=== PATIENT | female | born 1985 | race Caucasian/White ===

== ENCOUNTER 2018-10-27 12:43 | Emergency (ER) | payer OTHER, SELFPAY ==
[2018-10-27 12:51] VITALS: BP 127/89; PULSE 77; RESP 14; TEMP 36.7; O2SAT 97
[2018-10-27 13:41] LABS: Amorphous Sediment Urine 1+; Bacteria Urine Few (2-10); Culture Indicated Urine Specimen Cultured; Mucus Urine 1+ (Negative); RBC Urine 1-5/HPF (0-5/HPF); Squamous Epithelial Cell Urine 5-10 /HPF (0-5/HPF); WBC Urine 5-10/HPF (0-5/HPF)
[2018-10-27 14:57] VITALS: BP 128/79; PULSE 70; RESP 18; O2SAT 97
[2018-10-27 15:41] LABS: Add Manual Diff / Slide Review NO; Basophils Absolute Auto 100 /uL (0-100); Basophils Percent Auto 0.4 % (0-2); Eosinophils Absolute Auto 100 /uL (0-450); Eosinophils Percent Auto 1.1 % (2-4); Hematocrit 39.1 % (36-46); Hemoglobin 12.7 g/dL (12.0-16.0); Lymphocytes Absolute Auto 1800 /uL (1100-4500); Lymphocytes Percent Auto 13.6 % (25-40); Mean Corpuscular HGB Conc 32.4 % (30-36); Mean Corpuscular Hemoglobin 26.4 PG (26-34); Mean Corpuscular Volume 81.4 fL (80-100); Monocytes Absolute Auto 400 /uL (0-900); Monocytes Percent Auto 2.7 % (3-14); Neutrophils Absolute Auto 11000 /uL (1500-7000); Neutrophils Percent Auto 82.2 % (50-75); Platelet Count 312 X10^3/uL (150-400); White Blood Cell Count 13.4 X10^3/uL (4.5-11.0)
[2018-10-27 15:51] LABS: Alanine Aminotransferase 25 IU/L (9-52); Albumin 4.4 g/dL (3.5-5.0); Albumin Globulin Ratio 1.3 (1.0-2.8); Alkaline Phosphatase 97 U/L (38-126); Aspartate Aminotransferase 22 IU/L (14-36); BUN Creatinine Ratio 16.3 (6-22); Bilirubin Total 0.3 mg/dL (0.2-1.3); Blood Urea Nitrogen 13 mg/dL (7-17); Calcium 9.6 mg/dL (8.4-10.2); Carbon Dioxide 26 mmol/L (22-32); Chloride 102 mmol/L (98-107); Estimated Glomerular Filt Rate > 60.0 mL/min (>60); Globulin 3.5 g/dL (1.7-4.1); Glucose 102 mg/dL (70-100); HEMOLYSIS < 15 (0-50); Potassium 3.8 mmol/L (3.4-5.1); Sodium 139 mmol/L (137-145); Total Protein 7.9 g/dL (6.3-8.2)
--- NOTE | 2018-10-27 16:15 | DI.US.S_ITS ---
PROCEDURE: US PELVIC COMPLETE INDICATIONS: RLQ PAIN TECHNIQUE: Real-time scanning was performed of the pelvic organs, with image documentation. Additional endovaginal scanning was necessary due to incomplete visualization of the adnexal and endometrial structures by transabdominal scanning. COMPARISON: None. FINDINGS: Transabdominal scanning: Limited scanning through the kidneys shows no hydronephrosis. No pathologic free abdominal or pelvic fluid. Endovaginal scanning: Uterus: Uterus is normal in size at anteverted measuring 7.6 x 3.3 x 3.8 cm. The endometrium measures 6.3 mm in combined thickness. Ovaries: There is a simple appearing left ovarian cyst measuring 1.9 cm most likely a dominant follicle. Ovaries are otherwise normal. Right ovary measures 2.9 x 1.9 x 1.6 cm. Left ovary measures 3.2 x 2.1 x 1.0 cm. The appendix is not visualized. IMPRESSION: 1. No ultrasound findings tubes and right lower quadrant pain. Appendix is not visualized. Cannot rule out acute appendicitis. 2. Normal uterus and ovaries. Dictated by: Caprice Chirinos M.D. on 10/27/2018 at 16:34 Approved by: Caprice Chirinos M.D. on 10/27/2018 at 16:37
[2018-10-27] MEDS: ONDANSETRON 4 MG/2 ML INJ IV (16:18)
[2018-10-27] MEDS: KETOROLAC 60 MG/2 ML VIAL 30 MG IV (16:18)
[2018-10-27 16:59] VITALS: BP 121/62; PULSE 72; RESP 17; O2SAT 99
[2018-10-27 18:20] VITALS: BP 110/57; RESP 18; TEMP 36.7; O2SAT 98
--- NOTE | 2018-10-27 18:51 | ED.ABDPAIN ---
HPI - Abdominal Pain <CESAR Au - Last Filed: 10/27/18 18:56> General Chief Complaint: Abdominal Pain Stated Complaint: bladder pressure Time Seen by Provider: 10/27/18 15:12 Source: patient Mode of arrival: ambulatory Limitations: no limitations History of Present Illness HPI narrative: The patient is a 33-year-old female nonsmoker who presents with dribbling urine, sensation of incomplete bladder emptying, urgency and frequency. She complains of diffuse chills. She denies any overt fevers. She denies any vomiting or diarrhea. She states she almost fell nauseous once. She denies any chest pain, shortness of breath. She denies any vaginal discharge. she denies any concern for sexually transmitted infections. She states that her pressure is suprapubic, radiating to the right. Related Data Home Medications Medication Instructions Recorded Confirmed Trinessa 1 tab PO DAILY 10/27/18 10/27/18 albuterol sulfate [ProAir HFA] 1 puff INHALATION PRN PRN 10/27/18 10/27/18 cetirizine [Zyrtec] 10 mg PO DAILY 10/27/18 10/27/18 fluticasone propionate [Flonase 2 spray INTRANASAL DAILY 10/27/18 10/27/18 Allergy Relief] ibuprofen 800 mg PO PRN PRN 10/27/18 10/27/18 naproxen 1 tab PO PRN PRN 10/27/18 10/27/18 Previous Rx's Medication Instructions Recorded sulfamethoxazole-trimethoprim 1 tab PO BID #14 tab 10/27/18 [Bactrim DS] Allergies Allergy/AdvReac Type Severity Reaction Status Date / Time amoxicillin Allergy Intermediate Difficulty Verified 10/27/18 16:18 Breathing clavulanic acid Allergy Intermediate Difficulty Verified 10/27/18 16:18 [From Augmentin] Breathing diphenhydramine Allergy Unknown Verified 10/27/18 16:18 [From BENADRYL] Review of Systems <CESAR Au - Last Filed: 10/27/18 18:56> Review of Systems GENERAL: Denies chills, fatigue, malaise, fever, sweats. HEENT: Denies sinus pain, ear pain, sore throat, difficulty swallowing, dizziness. RESPIRATORY: Denies dyspnea, cough, wheezing, hemoptysis, sputum. CARDIOVASCULAR: Denies chest pain, palpitations, orthopnea, edema, GASTROINTESTINAL: See HPI : See HPI MUSCULOSKELETAL: denies weakness, joint pain, or bony pain SKIN: Denies rash, skin lesions, or other NEUROLOGIC: Denies weakness, headache, numbness, change in speech, confusion, seizures, incoordination. PSYCHIATRIC: No concerning psychosocial issues. 12 point review of systems is negative except for those stated above PFSH <CESAR Au - Last Filed: 10/27/18 18:56> Social History Smoking Status: Never smoker Social History Smoking Status: Never smoker Exam <CESAR Au - Last Filed: 10/27/18 18:56> Narrative Exam Narrative: GENERAL: This is a well-nourished, well-developed patient, in no acute distress HEAD: Atraumatic. Normocephalic. No temporal or scalp tenderness. EYES: Pupils equal round and reactive. Extraocular motions intact. No scleral icterus. No injection or drainage. ENT: Nose without bleeding, purulent drainage or septal hematoma. Throat without erythema, tonsillar hypertrophy or exudate. Uvula midline. Airway patent. NECK: Trachea midline. No JVD or lymphadenopathy. Supple, nontender, no meningeal signs. CARDIOVASCULAR: Regular rate and rhythm without murmurs, gallops, or rubs. RESPIRATORY: Clear to auscultation. Breath sounds equal bilaterally. No wheezes, rales, or rhonchi. No cough. No increased respiratory effort. No accessory muscle use. GASTROINTESTINAL: Abdomen soft, nondistended. No hepato-splenomegaly, or palpable masses. No guarding. Right-sided diffuse tenderness to palpation. No peritoneal signs. Negative obturator sign. EXTREMITIES: No clubbing, cyanosis, or edema. No joint tenderness, effusion, or edema noted. BACK: Nontender without deformity or crepitance. No flank tenderness. NEURO: AOx3. SKIN: No rash or erythema. Initial Vital Signs Initial Vital Signs: Vital Signs Temperature 98.0 F 10/27/18 12:51 Pulse Rate 77 10/27/18 12:51 Respiratory Rate 14 10/27/18 12:51 Blood Pressure 127/89 10/27/18 12:51 Pulse Oximetry 97 10/27/18 12:51 <Carly Resendez DO - Last Filed: 10/27/18 19:24> Initial Vital Signs Initial Vital Signs: Vital Signs Temperature 98.0 F 10/27/18 12:51 Pulse Rate 77 10/27/18 12:51 Respiratory Rate 14 10/27/18 12:51 Blood Pressure 127/89 10/27/18 12:51 Pulse Oximetry 97 10/27/18 12:51 Course <MONTSERRAT Au-BC - Last Filed: 10/27/18 18:56> Orders Ordered: ED Orders 10/27/18 13:15 Urine Culture Stat Urine Microscopic Stat 10/27/18 15:30 Complete Blood Count AUTO DIFF Stat Comprehensive Metabolic Panel Stat 10/27/18 16:15 US pelvic complete Stat Discontinued Medications Ketorolac Tromethamine (Toradol) 30 mg IV NOW ONE Stop: 10/27/18 15:30 Last Admin: 10/27/18 16:18 Dose: 30 mg Ondansetron HCl (Zofran) 4 mg IV NOW ONE Stop: 10/27/18 15:30 Last Admin: 10/27/18 16:18 Dose: 4 mg Vital Signs - 8 hr 10/27/18 12:51 10/27/18 14:57 10/27/18 16:59 Temperature 98.0 F Pulse Rate 77 70 72 Respiratory Rate 14 18 17 Blood Pressure 127/89 Blood Pressure [Left Arm] 128/79 121/62 Pulse Oximetry 97 97 99 10/27/18 18:20 Temperature 98.1 F Pulse Rate Respiratory Rate 18 Blood Pressure Blood Pressure [Left Arm] 110/57 L Pulse Oximetry 98 <Carly Resendez DO - Last Filed: 10/27/18 19:24> Orders Ordered: ED Orders 10/27/18 13:15 Urine Culture Stat Urine Microscopic Stat 10/27/18 15:30 Complete Blood Count AUTO DIFF Stat Comprehensive Metabolic Panel Stat 10/27/18 16:15 US pelvic complete Stat Discontinued Medications Ketorolac Tromethamine (Toradol) 30 mg IV NOW ONE Stop: 10/27/18 15:30 Last Admin: 10/27/18 16:18 Dose: 30 mg Ondansetron HCl (Zofran) 4 mg IV NOW ONE Stop: 10/27/18 15:30 Last Admin: 10/27/18 16:18 Dose: 4 mg Vital Signs - 8 hr 10/27/18 12:51 10/27/18 14:57 10/27/18 16:59 Temperature 98.0 F Pulse Rate 77 70 72 Respiratory Rate 14 18 17 Blood Pressure 127/89 Blood Pressure [Left Arm] 128/79 121/62 Pulse Oximetry 97 97 99 10/27/18 18:20 Temperature 98.1 F Pulse Rate Respiratory Rate 18 Blood Pressure Blood Pressure [Left Arm] 110/57 L Pulse Oximetry 98 MDM - Abdominal Pain <MARY ELLEN AuP-BC - Last Filed: 10/27/18 18:56> Lab Data Result diagrams: 10/27/18 15:30 10/27/18 15:30 Lab Results 10/27/18 10/27/18 10/27/18 Range/Units 13:15 15:30 15:30 WBC 13.4 H (4.5-11.0) X10^3/uL RBC 4.80 (4.0-5.2) X10^6/uL Hgb 12.7 (12.0-16.0) g/dL Hct 39.1 (36-46) % MCV 81.4 (80-100) fL MCH 26.4 (26-34) PG MCHC 32.4 (30-36) % RDW 14.0 (11.6-14.8) % Plt Count 312 (150-400) X10^3/uL Neut % (Auto) 82.2 H (50-75) % Lymph % (Auto) 13.6 L (25-40) % [place] % (Auto) 2.7 L (3-14) % Eos % (Auto) 1.1 L (2-4) % Baso % (Auto) 0.4 (0-2) % Neut # (Auto) 57518 H (2671-4242) /uL Lymph # (Auto) 1800 (9657-3239) /uL [place] # (Auto) 400 (0-900) /uL Eos # (Auto) 100 (0-450) /uL Baso # (Auto) 100 (0-100) /uL Sodium 139 (137-145) mmol/L Potassium 3.8 (3.4-5.1) mmol/L Chloride 102 (98-107) mmol/L Carbon Dioxide 26 (22-32) mmol/L BUN 13 (7-17) mg/dL Creatinine 0.80 (0.52-1.04) mg/dL Estimated GFR > 60.0 (>60) mL/min BUN/Creatinine Ratio 16.3 (6-22) Glucose 102 H (70-100) mg/dL Calcium 9.6 (8.4-10.2) mg/dL Total Bilirubin 0.3 (0.2-1.3) mg/dL AST 22 (14-36) IU/L ALT 25 (9-52) IU/L Alkaline Phosphatase 97 (38-126) U/L Total Protein 7.9 (6.3-8.2) g/dL Albumin 4.4 (3.5-5.0) g/dL Globulin 3.5 (1.7-4.1) g/dL Albumin/Globulin Ratio 1.3 (1.0-2.8) Urine RBC 1-5/hpf (0-5/HPF) Urine WBC 5-10/hpf H (0-5/HPF) Ur Squamous Epith Cells 5-10 /hpf H (0-5/HPF) Amorphous Sediment 1+ Urine Bacteria Few (2-10) H (None) Urine Mucus 1+ H (Negative) Ur Culture Indicated? Specimen cultured Point of care testing: Point of Care Testing Test Results Negative Urine Dip Bedside Urine Glucose Negative Bedside Urine Bilirubin - Negative Bedside Urine Ketone - Negative Urine Specific [place] 1.030 Bedside Urine Occult Blood +++ Bedside Urine pH 5.5 Bedside Urine Protein +/- 15 Bedside Urine Urobilinogen +/- 1mg Bedside Urine Nitrite - Negative Bedside Urine Leukocytes + 70 Esterase Imaging Data Pelvic ultrasound: Radiologist's impression: Ayah Diceky 33 F 1985 [place] [id number] Ultrasound Report Signed Patient: Ayah Dickey RMR#: [id number] : 1985Acct:[id number] Age/Sex: 33 / FDate of Service: 10/27/18 Loc: ED Accession Number: [id number] Procedure: US pelvic complete Ordering Provider: Carly Hathaway [employer]-BC PROCEDURE: US PELVIC COMPLETE INDICATIONS: RLQ PAIN TECHNIQUE: Real-time scanning was performed of the pelvic organs, with image documentation. Additional endovaginal scanning was necessary due to incomplete visualization of the adnexal and endometrial structures by transabdominal scanning. COMPARISON: None. FINDINGS: Transabdominal scanning: Limited scanning through the kidneys shows no hydronephrosis. No pathologic free abdominal or pelvic fluid. Endovaginal scanning: Uterus: Uterus is normal in size at anteverted measuring 7.6 x 3.3 x 3.8 cm. The endometrium measures 6.3 mm in combined thickness. Ovaries: There is a simple appearing left ovarian cyst measuring 1.9 cm most likely a dominant follicle. Ovaries are otherwise normal. Right ovary measures 2.9 x 1.9 x 1.6 cm. Left ovary measures 3.2 x 2.1 x 1.0 cm. The appendix is not visualized. IMPRESSION: 1. No ultrasound findings tubes and right lower quadrant pain. Appendix is not visualized. Cannot rule out acute appendicitis. 2. Normal uterus and ovaries. Dictated by: Caprice Chirinos M.D. on 10/27/2018 at 16:34 Approved by: Caprice Chirinos M.D. on 10/27/2018 at 16:37 MDM Narrative Medical decision making narrative: The patient is a 33-year-old female who presents with urinary symptoms and suprapubic pressure radiating to right lower quadrant. She is afebrile. She was drinking throughout her stay in the emergency department thus tolerating p.o. intake. She does not have an acute abdominal exam. She does have bacteria, leukocyte esterase, and blood in her urine. Thus I will treat her for UTI with Bactrim. I discussed at length that the ultrasound is not fully rule out appendicitis. Discussed return precautions to the emergency department including fever with abdominal pain, inability keep down fluids etc. Encouraged follow-up with primary care provider for re-evaluation in the next few days. Patient has no questions or concerns upon discharge. <Carly Resendez, DO - Last Filed: 10/27/18 19:24> Lab Data Lab Results 10/27/18 10/27/18 10/27/18 Range/Units 13:15 15:30 15:30 WBC 13.4 H (4.5-11.0) X10^3/uL RBC 4.80 (4.0-5.2) X10^6/uL Hgb 12.7 (12.0-16.0) g/dL Hct 39.1 (36-46) % MCV 81.4 (80-100) fL MCH 26.4 (26-34) PG MCHC 32.4 (30-36) % RDW 14.0 (11.6-14.8) % Plt Count 312 (150-400) X10^3/uL Neut % (Auto) 82.2 H (50-75) % Lymph % (Auto) 13.6 L (25-40) % [place] % (Auto) 2.7 L (3-14) % Eos % (Auto) 1.1 L (2-4) % Baso % (Auto) 0.4 (0-2) % Neut # (Auto) 45947 H (8171-4083) /uL Lymph # (Auto) 1800 (8996-0373) /uL [place] # (Auto) 400 (0-900) /uL Eos # (Auto) 100 (0-450) /uL Baso # (Auto) 100 (0-100) /uL Sodium 139 (137-145) mmol/L Potassium 3.8 (3.4-5.1) mmol/L Chloride 102 (98-107) mmol/L Carbon Dioxide 26 (22-32) mmol/L BUN 13 (7-17) mg/dL Creatinine 0.80 (0.52-1.04) mg/dL Estimated GFR > 60.0 (>60) mL/min BUN/Creatinine Ratio 16.3 (6-22) Glucose 102 H (70-100) mg/dL Calcium 9.6 (8.4-10.2) mg/dL Total Bilirubin 0.3 (0.2-1.3) mg/dL AST 22 (14-36) IU/L ALT 25 (9-52) IU/L Alkaline Phosphatase 97 (38-126) U/L Total Protein 7.9 (6.3-8.2) g/dL Albumin 4.4 (3.5-5.0) g/dL Globulin 3.5 (1.7-4.1) g/dL Albumin/Globulin Ratio 1.3 (1.0-2.8) Urine RBC 1-5/hpf (0-5/HPF) Urine WBC 5-10/hpf H (0-5/HPF) Ur Squamous Epith Cells 5-10 /hpf H (0-5/HPF) Amorphous Sediment 1+ Urine Bacteria Few (2-10) H (None) Urine Mucus 1+ H (Negative) Ur Culture Indicated? Specimen cultured Point of care testing: Point of Care Testing Test Results Negative Urine Dip Bedside Urine Glucose Negative Bedside Urine Bilirubin - Negative Bedside Urine Ketone - Negative Urine Specific [place] 1.030 Bedside Urine Occult Blood +++ Bedside Urine pH 5.5 Bedside Urine Protein +/- 15 Bedside Urine Urobilinogen +/- 1mg Bedside Urine Nitrite - Negative Bedside Urine Leukocytes + 70 Esterase Discharge Plan Departure Patient Disposition: Home Clinical Impression: UTI (urinary tract infection) Qualifiers: Urinary tract infection type: site unspecified Hematuria presence: with hematuria Qualified Code(s): N39.0 - Urinary tract infection, site not specified Discharge Date/Time: 10/27/18 18:29 Interventions: ED Discharge Assessment Last Done: 10/27/18 18:26 Instructions: DI for Urinary Tract Infection (UTI) Activity Restrictions/Additional Instructions: You had bacteria, blood and leukocyte esterase in your urine. I am giving you Bactrim for urinary tract infection. The ultrasound we did today did not find anything acute, but does not fully rule out appendicitis as the appendix was not visualized. Please monitor for abdominal pain with fever, inability keep down fluids worsening of pain etc. Please follow up with primary care provider. Please come back to the emergency department for any acute concerns such as inability keep down fluids, abdominal pain with fever etc. Prescriptions: New sulfamethoxazole-trimethoprim [Bactrim DS] 800-160 mg tablet 1 tab PO BID Qty: 14 RF: 0 No Action albuterol sulfate [ProAir HFA] 90 mcg/actuation HFA aerosol inhaler 1 puff Inhalation PRN PRN (Reason: Shortness Of Breath) RF: 0 Trinessa 1 tab PO DAILY RF: 0 cetirizine [Zyrtec] 10 mg Tablet 10 mg PO DAILY RF: 0 ibuprofen 400 mg Tablet 800 mg PO PRN PRN (Reason: pain) RF: 0 fluticasone propionate [Flonase Allergy Relief] 50 mcg/actuation [place],Suspension 2 spray Intranasal DAILY RF: 0 naproxen 1 tab PO PRN PRN (Reason: pain) RF: 0 <Carly Resendez DO - Last Filed: 10/27/18 19:24> Cosign ED Attending Karleeature Attestation: I was immediately available in the department for consultation. This documentation has been reviewed and I agree with assessment and plan. Supervised by Carly Resendez, DO
--- NOTE | 2018-10-27 18:56 | ED_ITS ---
HPI - Abdominal Pain <CESAR Au - Last Filed: 10/27/18 18:56> General Chief Complaint: Abdominal Pain Stated Complaint: bladder pressure Time Seen by Provider: 10/27/18 15:12 Source: patient Mode of arrival: ambulatory Limitations: no limitations History of Present Illness HPI narrative: The patient is a 33-year-old female nonsmoker who presents with dribbling urine, sensation of incomplete bladder emptying, urgency and frequency. She complains of diffuse chills. She denies any overt fevers. She denies any vomiting or diarrhea. She states she almost fell nauseous once. She denies any chest pain, shortness of breath. She denies any vaginal discharge. she denies any concern for sexually transmitted infections. She states that her pressure is suprapubic, radiating to the right. Related Data Home Medications Medication Instructions Recorded Confirmed Trinessa 1 tab PO DAILY 10/27/18 10/27/18 albuterol sulfate [ProAir HFA] 1 puff INHALATION PRN PRN 10/27/18 10/27/18 cetirizine [Zyrtec] 10 mg PO DAILY 10/27/18 10/27/18 fluticasone propionate [Flonase 2 spray INTRANASAL DAILY 10/27/18 10/27/18 Allergy Relief] ibuprofen 800 mg PO PRN PRN 10/27/18 10/27/18 naproxen 1 tab PO PRN PRN 10/27/18 10/27/18 Previous Rx's Medication Instructions Recorded sulfamethoxazole-trimethoprim 1 tab PO BID #14 tab 10/27/18 [Bactrim DS] Allergies Allergy/AdvReac Type Severity Reaction Status Date / Time amoxicillin Allergy Intermediate Difficulty Verified 10/27/18 16:18 Breathing clavulanic acid Allergy Intermediate Difficulty Verified 10/27/18 16:18 [From Augmentin] Breathing diphenhydramine Allergy Unknown Verified 10/27/18 16:18 [From BENADRYL] Review of Systems <CESAR Au - Last Filed: 10/27/18 18:56> Review of Systems GENERAL: Denies chills, fatigue, malaise, fever, sweats. HEENT: Denies sinus pain, ear pain, sore throat, difficulty swallowing, dizziness. RESPIRATORY: Denies dyspnea, cough, wheezing, hemoptysis, sputum. CARDIOVASCULAR: Denies chest pain, palpitations, orthopnea, edema, GASTROINTESTINAL: See HPI : See HPI MUSCULOSKELETAL: denies weakness, joint pain, or bony pain SKIN: Denies rash, skin lesions, or other NEUROLOGIC: Denies weakness, headache, numbness, change in speech, confusion, seizures, incoordination. PSYCHIATRIC: No concerning psychosocial issues. 12 point review of systems is negative except for those stated above PFSH <SAMANTHA Au - Last Filed: 10/27/18 18:56> Social History Smoking Status: Never smoker Social History Smoking Status: Never smoker Exam <CESRA Au - Last Filed: 10/27/18 18:56> Narrative Exam Narrative: GENERAL: This is a well-nourished, well-developed patient, in no acute distress HEAD: Atraumatic. Normocephalic. No temporal or scalp tenderness. EYES: Pupils equal round and reactive. Extraocular motions intact. No scleral icterus. No injection or drainage. ENT: Nose without bleeding, purulent drainage or septal hematoma. Throat without erythema, tonsillar hypertrophy or exudate. Uvula midline. Airway patent. NECK: Trachea midline. No JVD or lymphadenopathy. Supple, nontender, no meningea l signs. CARDIOVASCULAR: Regular rate and rhythm without murmurs, gallops, or rubs. RESPIRATORY: Clear to auscultation. Breath sounds equal bilaterally. No wheezes, rales, or rhonchi. No cough. No increased respiratory effort. No accessory muscle use. GASTROINTESTINAL: Abdomen soft, nondistended. No hepato-splenomegaly, or palpable masses. No guarding. Right-sided diffuse tenderness to palpation. No peritoneal signs. Negative obturator sign. EXTREMITIES: No clubbing, cyanosis, or edema. No joint tenderness, effusion, or edema noted. BACK: Nontender without deformity or crepitance. No flank tenderness. NEURO: AOx3. SKIN: No rash or erythema. Initial Vital Signs Initial Vital Signs: Vital Signs Temperature 98.0 F 10/27/18 12:51 Pulse Rate 77 10/27/18 12:51 Respiratory Rate 14 10/27/18 12:51 Blood Pressure 127/89 10/27/18 12:51 Pulse Oximetry 97 10/27/18 12:51 <Carly Resendez DO - Last Filed: 10/27/18 19:24> Initial Vital Signs Initial Vital Signs: Vital Signs Temperature 98.0 F 10/27/18 12:51 Pulse Rate 77 10/27/18 12:51 Respiratory Rate 14 10/27/18 12:51 Blood Pressure 127/89 10/27/18 12:51 Pulse Oximetry 97 10/27/18 12:51 Course <MARY ELLEN AuP-BC - Last Filed: 10/27/18 18:56> Orders Ordered: ED Orders 10/27/18 13:15 Urine Culture Stat Urine Microscopic Stat 10/27/18 15:30 Complete Blood Count AUTO DIFF Stat Comprehensive Metabolic Panel Stat 10/27/18 16:15 US pelvic complete Stat Discontinued Medications Ketorolac Tromethamine (Toradol) 30 mg IV NOW ONE Stop: 10/27/18 15:30 Last Admin: 10/27/18 16:18 Dose: 30 mg Ondansetron HCl (Zofran) 4 mg IV NOW ONE Stop: 10/27/18 15:30 Last Admin: 10/27/18 16:18 Dose: 4 mg Vital Signs - 8 hr 10/27/18 12:51 10/27/18 14:57 10/27/18 16:59 Temperature 98.0 F Pulse Rate 77 70 72 Respiratory Rate 14 18 17 Blood Pressure 127/89 Blood Pressure [Left Arm] 128/79 121/62 Pulse Oximetry 97 97 99 10/27/18 18:20 Temperature 98.1 F Pulse Rate Respiratory Rate 18 Blood Pressure Blood Pressure [Left Arm] 110/57 L Pulse Oximetry 98 <Carly Resendez DO - Last Filed: 10/27/18 19:24> Orders Ordered: ED Orders 10/27/18 13:15 Urine Culture Stat Urine Microscopic Stat 10/27/18 15:30 Complete Blood Count AUTO DIFF Stat Comprehensive Metabolic Panel Stat 10/27/18 16:15 US pelvic complete Stat Discontinued Medications Ketorolac Tromethamine (Toradol) 30 mg IV NOW ONE Stop: 10/27/18 15:30 Last Admin: 10/27/18 16:18 Dose: 30 mg Ondansetron HCl (Zofran) 4 mg IV NOW ONE Stop: 10/27/18 15:30 Last Admin: 10/27/18 16:18 Dose: 4 mg Vital Signs - 8 hr 10/27/18 12:51 10/27/18 14:57 10/27/18 16:59 Temperature 98.0 F Pulse Rate 77 70 72 Respiratory Rate 14 18 17 Blood Pressure 127/89 Blood Pressure [Left Arm] 128/79 121/62 Pulse Oximetry 97 97 99 10/27/18 18:20 Temperature 98.1 F Pulse Rate Respiratory Rate 18 Blood Pressure Blood Pressure [Left Arm] 110/57 L Pulse Oximetry 98 MDM - Abdominal Pain <MONTSERRAT Au-BC - Last Filed: 10/27/18 18:56> Lab Data Result diagrams: 10/27/18 15:30 10/27/18 15:30 Lab Results 10/27/18 10/27/18 10/27/18 Range/Units 13:15 15:30 15:30 WBC 13.4 H (4.5-11.0) X10^3/uL RBC 4.80 (4.0-5.2) X10^6/uL Hgb 12.7 (12.0-16.0) g/dL Hct 39.1 (36-46) % MCV 81.4 (80-100) fL MCH 26.4 (26-34) PG MCHC 32.4 (30-36) % RDW 14.0 (11.6-14.8) % Plt Count 312 (150-400) X10^3/uL Neut % (Auto) 82.2 H (50-75) % Lymph % (Auto) 13.6 L (25-40) % [place] % (Auto) 2.7 L (3-14) % Eos % (Auto) 1.1 L (2-4) % Baso % (Auto) 0.4 (0-2) % Neut # (Auto) 88651 H (3620-8365) /uL Lymph # (Auto) 1800 (2427-8709) /uL Hudson # (Auto) 400 (0-900) /uL Eos # (Auto) 100 (0-450) /uL Baso # (Auto) 100 (0-100) /uL Sodium 139 (137-145) mmol/L Potassium 3.8 (3.4-5.1) mmol/L Chloride 102 (98-107) mmol/L Carbon Dioxide 26 (22-32) mmol/L BUN 13 (7-17) mg/dL Creatinine 0.80 (0.52-1.04) mg/dL Estimated GFR > 60.0 (>60) mL/min BUN/Creatinine Ratio 16.3 (6-22) Glucose 102 H (70-100) mg/dL Calcium 9.6 (8.4-10.2) mg/dL Total Bilirubin 0.3 (0.2-1.3) mg/dL AST 22 (14-36) IU/L ALT 25 (9-52) IU/L Alkaline Phosphatase 97 (38-126) U/L Total Protein 7.9 (6.3-8.2) g/dL Albumin 4.4 (3.5-5.0) g/dL Globulin 3.5 (1.7-4.1) g/dL Albumin/Globulin Ratio 1.3 (1.0-2.8) Urine RBC 1-5/hpf (0-5/HPF) Urine WBC 5-10/hpf H (0-5/HPF) Ur Squamous Epith Cells 5-10 /hpf H (0-5/HPF) Amorphous Sediment 1+ Urine Bacteria Few (2-10) H (None) Urine Mucus 1+ H (Negative) Ur Culture Indicated? Specimen cultured Point of care testing: Point of Care Testing Test Results Negative Urine Dip Bedside Urine Glucose Negative Bedside Urine Bilirubin - Negative Bedside Urine Ketone - Negative Urine Specific [place] 1.030 Bedside Urine Occult Blood +++ Bedside Urine pH 5.5 Bedside Urine Protein +/- 15 Bedside Urine Urobilinogen +/- 1mg Bedside Urine Nitrite - Negative Bedside Urine Leukocytes + 70 Esterase Imaging Data Pelvic ultrasound: Radiologist's impression: Ayah Dickey 33 F 1985 [place] [address] Ultrasound Report Signed Patient: Ayah Dickey RMR#: [id number] : 1985Acct:[id number] Age/Sex: 33 / FDate of Service: 10/27/18 Loc: ED Accession Number: [id number] Procedure: US pelvic complete Ordering Provider: Carly Hathaway [employer]POSITION TEACHER-BC PROCEDURE: US PELVIC COMPLETE INDICATIONS: RLQ PAIN TECHNIQUE: Real-time scanning was performed of the pelvic organs, with image documentation. Additional endovaginal scanning was necessary due to incomplete visualization of the adnexal and endometrial structures by transabdominal scanning. COMPARISON: None. FINDINGS: Transabdominal scanning: Limited scanning through the kidneys shows no hydronephrosis. No pathologic free abdominal or pelvic fluid. Endovaginal scanning: Uterus: Uterus is normal in size at anteverted measuring 7.6 x 3.3 x 3.8 cm. The endometrium measures 6.3 mm in combined thickness. Ovaries: There is a simple appearing left ovarian cyst measuring 1.9 cm most likely a dominant follicle. Ovaries are otherwise normal. Right ovary measures 2.9 x 1.9 x 1.6 cm. Left ovary measures 3.2 x 2.1 x 1.0 cm. The appendix is not visualized. IMPRESSION: 1. No ultrasound findings tubes and right lower quadrant pain. Appendix is not visualized. Cannot rule out acute appendicitis. 2. Normal uterus and ovaries. Dictated by: Caprice Chirinos M.D. on 10/27/2018 at 16:34 Approved by: Caprice Chirinos M.D. on 10/27/2018 at 16:37 MDM Narrative Medical decision making narrative: The patient is a 33-year-old female who presents with urinary symptoms and suprapubic pressure radiating to right lower quadrant. She is afebrile. She was drinking throughout her stay in the emergency department thus tolerating p.o. intake. She does not have an acute abdominal exam. She does have bacteria, leukocyte esterase, and blood in her urine. Thus I will treat her for UTI with Bactrim. I discussed at length that the ultrasound is not fully rule out appendicitis. Discussed return precautions to the emergency department including fever with abdominal pain, inability keep down fluids etc. Encouraged follow-up with primary care provider for re- evaluation in the next few days. Patient has no questions or concerns upon discharge. <Carly Resendez, DO - Last Filed: 10/27/18 19:24> Lab Data Lab Results 10/27/18 10/27/18 10/27/18 Range/Units 13:15 15:30 15:30 WBC 13.4 H (4.5-11.0) X10^3/uL RBC 4.80 (4.0-5.2) X10^6/uL Hgb 12.7 (12.0-16.0) g/dL Hct 39.1 (36-46) % MCV 81.4 (80-100) fL MCH 26.4 (26-34) PG MCHC 32.4 (30-36) % RDW 14.0 (11.6-14.8) % Plt Count 312 (150-400) X10^3/uL Neut % (Auto) 82.2 H (50-75) % Lymph % (Auto) 13.6 L (25-40) % [place] % (Auto) 2.7 L (3-14) % Eos % (Auto) 1.1 L (2-4) % Baso % (Auto) 0.4 (0-2) % Neut # (Auto) 48587 H (2446-4115) /uL Lymph # (Auto) 1800 (1252-4321) /uL [place] # (Auto) 400 (0-900) /uL Eos # (Auto) 100 (0-450) /uL Baso # (Auto) 100 (0-100) /uL Sodium 139 (137-145) mmol/L Potassium 3.8 (3.4-5.1) mmol/L Chloride 102 (98-107) mmol/L Carbon Dioxide 26 (22-32) mmol/L BUN 13 (7-17) mg/dL Creatinine 0.80 (0.52-1.04) mg/dL Estimated GFR > 60.0 (>60) mL/min BUN/Creatinine Ratio 16.3 (6-22) Glucose 102 H (70-100) mg/dL Calcium 9.6 (8.4-10.2) mg/dL Total Bilirubin 0.3 (0.2-1.3) mg/dL AST 22 (14-36) IU/L ALT 25 (9-52) IU/L Alkaline Phosphatase 97 (38-126) U/L Total Protein 7.9 (6.3-8.2) g/dL Albumin 4.4 (3.5-5.0) g/dL Globulin 3.5 (1.7-4.1) g/dL Albumin/Globulin Ratio 1.3 (1.0-2.8) Urine RBC 1-5/hpf (0-5/HPF) Urine WBC 5-10/hpf H (0-5/HPF) Ur Squamous Epith Cells 5-10 /hpf H (0-5/HPF) Amorphous Sediment 1+ Urine Bacteria Few (2-10) H (None) Urine Mucus 1+ H (Negative) Ur Culture Indicated? Specimen cultured Point of care testing: Point of Care Testing Test Results Negative Urine Dip Bedside Urine Glucose Negative Bedside Urine Bilirubin - Negative Bedside Urine Ketone - Negative Urine Specific [place] 1.030 Bedside Urine Occult Blood +++ Bedside Urine pH 5.5 Bedside Urine Protein +/- 15 Bedside Urine Urobilinogen +/- 1mg Bedside Urine Nitrite - Negative Bedside Urine Leukocytes + 70 Esterase Discharge Plan Departure Patient Disposition: Home Clinical Impression: UTI (urinary tract infection) Qualifiers: Urinary tract infection type: site unspecified Hematuria presence: with hematuria Qualified Code(s): N39.0 - Urinary tract infection, site not specified Discharge Date/Time: 10/27/18 18:29 Interventions: ED Discharge Assessment Last Done: 10/27/18 18:26 Instructions: DI for Urinary Tract Infection (UTI) Activity Restrictions/Additional Instructions: You had bacteria, blood and leukocyte esterase in your urine. I am giving you Bactrim for urinary tract infection. The ultrasound we did today did not find anything acute, but does not fully rule out appendicitis as the appendix was not visualized. Please monitor for abdominal pain with fever, inability keep down fluids worsening of pain etc. Please follow up with primary care provider. Please come back to the emergency department for any acute concerns such as inability keep down fluids, abdominal pain with fever etc. Prescriptions: New sulfamethoxazole-trimethoprim [Bactrim DS] 800-160 mg tablet 1 tab PO BID Qty: 14 RF: 0 No Action albuterol sulfate [ProAir HFA] 90 mcg/actuation HFA aerosol inhaler 1 puff Inhalation PRN PRN (Reason: Shortness Of Breath) RF: 0 Trinessa 1 tab PO DAILY RF: 0 cetirizine [Zyrtec] 10 mg Tablet 10 mg PO DAILY RF: 0 ibuprofen 400 mg Tablet 800 mg PO PRN PRN (Reason: pain) RF: 0 fluticasone propionate [Flonase Allergy Relief] 50 mcg/actuation [place],Suspension 2 spray Intranasal DAILY RF: 0 naproxen 1 tab PO PRN PRN (Reason: pain) RF: 0 <Carly Resendez DO - Last Filed: 10/27/18 19:24> Cosign ED Attending Karleeature Attestation: I was immediately available in the department for consultation. This documentation has been reviewed and I agree with assessment and plan. Supervised by Carly Resendez, DO
== END 2018-10-27 18:29 | disposition home or self-care (01) ==
PROVIDERS: Emergency Medicine; Emergency Provider Nurse Practitioner Family
DX: N39.0 Urinary tract infection, site not specified (principal)
CPT/HCPCS: 36591; 51798; 76830; 76856; 80053; 81003; 81015; 81025; 85025; 87086; 96374; 96375; 99283; 99284; J1885; J2405